=== PATIENT | male | born 1990 | race Caucasian/White ===

== ENCOUNTER 2017-03-12 20:23 | Inpatient (IN) | payer OTHER ==
[~2017-03-12] VITALS: Ht 180.3 cm; Wt 87.5 kg
[2017-03-13 00:03] LABS: UA SPECIFIC GRAVITY 1.025 (1.005-1.035); microscopic required? YES; urine erythrocyte NEGATIVE (NEGATIVE)
[2017-03-13 00:12] LABS: BASOPHIL % 0.7 % (0-2); CALCIUM 9.3 mg/dL (8.5-10.1); CHLORIDE SERUM 100 mmol/L (98-107); CREATININE SERUM 1.3 mg/dL (0.7-1.3); GFR1 > 60 mL/min; GLUCOSE SERUM 103 mg/dL (74-106); PLATELET COUNT 360 x10^3mcL (130-400); POTASSIUM SERUM 3.5 mmol/L (3.5-5.1); RED CELL DISTRIBUTION WIDTH 11.9 % (11.5-14.5); SODIUM SERUM 137 mmol/L (136-145)
[2017-03-13 00:20] LABS: ALBUMIN 3.5 g/dL (3.4-5.0); ALKALINE PHOSPHATASE 123 U/L (46-116); ALT/SGPT 55 U/L (16-63); AST/SGOT 44 U/L (15-37); BILIRUBIN TOTAL 0.6 mg/dL (0.20-1.00); TOTAL PROTEIN, SERUM 9.7 g/dL (6.4-8.2)
[2017-03-13 03:34] LABS: CHOLESTEROL/HDL RATIO 3.6; PHOSPHOROUS 3.2 mg/dL (2.5-4.9)
[2017-03-13 03:42] LABS: FREE T4 1.13 ng/dL (0.76-1.46); FREE THYROXINE INDEX 2.9 ug/dL (1.4-4.5); T4(THYROXINE) 8.2 ug/dL (4.7-13.3)
[2017-03-13 03:50] LABS: T3 TOTAL 0.99 ng/mL
[2017-03-13 04:07] VITALS: BP 128/79
[2017-03-13 04:14] VITALS: BP 110/65
[2017-03-13 04:29] LABS: RED CELL DISTRIBUTION WIDTH 11.9 % (11.5-14.5)
[2017-03-13 04:47] LABS: CALCIUM 7.3 mg/dL (8.5-10.1); CARBON DIOXIDE 24.6 mmol/L (21-32); CHLORIDE SERUM 108 mmol/L (98-107); CREATININE SERUM 1.1 mg/dL (0.7-1.3); GFR1 > 60 mL/min; GLUCOSE SERUM 96 mg/dL (74-106); MAGNESIUM 1.6 mg/dL (1.8-2.4); PHOSPHOROUS 3.4 mg/dL (2.5-4.9); POTASSIUM SERUM 3.8 mmol/L (3.5-5.1); SODIUM SERUM 143 mmol/L (136-145)
[2017-03-13 04:48] LABS: BASOPHIL % 0.4 % (0-2); PLATELET COUNT 270 x10^3mcL (130-400)
[2017-03-13 10:26] LABS: AMPHETAMINE QUAL UR NONE DETECTED (NEG <=1000)
[2017-03-13 10:52] VITALS: BP 118/73
[2017-03-13 19:10] VITALS: BP 131/72
[2017-03-13 22:24] VITALS: BP 130/77
[2017-03-14 05:53] VITALS: BP 113/64
[2017-03-14 06:18] LABS: BASOPHIL % 0.5 % (0-2); PLATELET COUNT 324 x10^3mcL (130-400); RED CELL DISTRIBUTION WIDTH 12.2 % (11.5-14.5)
[2017-03-14 07:16] LABS: ALBUMIN 2.6 g/dL (3.4-5.0); CALCIUM 8.5 mg/dL (8.5-10.1); CARBON DIOXIDE 29.1 mmol/L (21-32); CHLORIDE SERUM 105 mmol/L (98-107); GFR1 > 60 mL/min; GLUCOSE SERUM 92 mg/dL (74-106); MAGNESIUM 1.9 mg/dL (1.8-2.4); POTASSIUM SERUM 4.1 mmol/L (3.5-5.1); SODIUM SERUM 140 mmol/L (136-145)
[2017-03-14 13:08] VITALS: BP 114/70
[2017-03-14 17:36] VITALS: BP 118/64
[2017-03-14 21:41] VITALS: BP 110/64
[2017-03-15 05:30] VITALS: BP 127/83
[2017-03-15 06:26] LABS: BASOPHIL % 0.6 % (0-2); PLATELET COUNT 363 x10^3mcL (130-400); RED CELL DISTRIBUTION WIDTH 11.9 % (11.5-14.5)
[2017-03-15 06:51] LABS: ALBUMIN 2.7 g/dL (3.4-5.0); ALKALINE PHOSPHATASE 91 U/L (46-116); ALT/SGPT 28 U/L (16-63); AST/SGOT 13 U/L (15-37); BILIRUBIN TOTAL 0.4 mg/dL (0.20-1.00); CARBON DIOXIDE 32.1 mmol/L (21-32); CHLORIDE SERUM 104 mmol/L (98-107); GFR1 > 60 mL/min; GLUCOSE SERUM 91 mg/dL (74-106); POTASSIUM SERUM 4.3 mmol/L (3.5-5.1); SODIUM SERUM 141 mmol/L (136-145); TOTAL PROTEIN, SERUM 7.9 g/dL (6.4-8.2)
[2017-03-15 09:17] VITALS: BP 134/84
[2017-03-15 13:01] VITALS: BP 129/85
[2017-03-15 17:13] VITALS: BP 95/58
[2017-03-15 17:26] VITALS: BP 115/60
[2017-03-15 21:15] VITALS: BP 112/63
[2017-03-16 06:06] VITALS: BP 133/86
[2017-03-16 06:24] LABS: CALCIUM 8.7 mg/dL (8.5-10.1); CARBON DIOXIDE 33.2 mmol/L (21-32); CHLORIDE SERUM 103 mmol/L (98-107); CREATININE SERUM 0.9 mg/dL (0.7-1.3); GFR1 > 60 mL/min; GLUCOSE SERUM 95 mg/dL (74-106); MAGNESIUM 2.1 mg/dL (1.8-2.4); PHOSPHOROUS 4.3 mg/dL (2.5-4.9); SODIUM SERUM 140 mmol/L (136-145)
[2017-03-16 07:13] LABS: BASOPHIL % 0.5 % (0-2); PLATELET COUNT 397 x10^3mcL (130-400); RED CELL DISTRIBUTION WIDTH 11.9 % (11.5-14.5)
[2017-03-16 09:20] VITALS: BP 106/65
[2017-03-16 17:44] VITALS: BP 132/69
[2017-03-16 21:00] VITALS: BP 110/65
[2017-03-17 05:27] VITALS: BP 116/80
[2017-03-17 07:27] LABS: BASOPHIL % 0.7 % (0-2); RED CELL DISTRIBUTION WIDTH 11.9 % (11.5-14.5)
[2017-03-17 07:28] LABS: PLATELET COUNT 420 x10^3mcL (130-400)
[2017-03-17 10:18] VITALS: BP 107/73
[2017-03-17 17:24] VITALS: BP 124/78
[2017-03-17 21:12] VITALS: BP 102/61
[2017-03-18 05:49] VITALS: BP 108/64
[2017-03-18 06:33] LABS: BASOPHIL % 0.5 % (0-2)
[2017-03-18 06:43] LABS: CARBON DIOXIDE 30.4 mmol/L (21-32); CHLORIDE SERUM 103 mmol/L (98-107); CREATININE SERUM 1.1 mg/dL (0.7-1.3); GFR1 > 60 mL/min; GLUCOSE SERUM 95 mg/dL (74-106); POTASSIUM SERUM 4.1 mmol/L (3.5-5.1); SODIUM SERUM 140 mmol/L (136-145)
[2017-03-18 06:45] LABS: PLATELET COUNT 408 x10^3mcL (130-400)
[2017-03-18 09:30] VITALS: BP 126/86
[2017-03-18 13:00] VITALS: BP 121/80
[2017-03-18 21:47] VITALS: BP 133/81
[2017-03-19 06:00] VITALS: BP 117/70
[2017-03-19 06:45] LABS: BASOPHIL % 0.5 % (0-2)
[2017-03-19 06:59] LABS: PLATELET COUNT 453 x10^3mcL (130-400)
[2017-03-19 07:38] LABS: CALCIUM 9.1 mg/dL (8.5-10.1); CARBON DIOXIDE 29.6 mmol/L (21-32); CHLORIDE SERUM 103 mmol/L (98-107); GFR1 > 60 mL/min; GLUCOSE SERUM 94 mg/dL (74-106); POTASSIUM SERUM 3.8 mmol/L (3.5-5.1); SODIUM SERUM 139 mmol/L (136-145)
[2017-03-19 09:27] VITALS: BP 118/72
[2017-03-19 12:31] VITALS: BP 117/76
[2017-03-19] MEDS ORDERED: TOR10 PO (14:23)
[2017-03-19] MEDS ORDERED: KEFLEX500 M1 PO (14:28)
[2017-03-19] MEDS ORDERED: LAC PO (14:28)
[2017-03-19 14:35] VITALS: BP 117/76
== END 2017-03-19 17:00 | disposition home or self-care (01) | DRG 570 ==
LOC: ED 20:23 → MU 03-13 02:05 → DU 03-13 02:05 → MU 03-13 05:33
PROVIDERS: Emergency Medicine; Family Medicine; Surgery; ADMIT Family Medicine
PROC: 0D9Q0ZZ Drainage of Anus, Open Approach (ICD-10-PCS; 2017-03-15)
PROC: 0HQ9XZZ Repair Perineum Skin, External Approach (ICD-10-PCS; 2017-03-18)
PROC: 0JBB0ZZ Excision of Perineum Subcutaneous Tissue and Fascia, Open Approach (ICD-10-PCS; principal; 2017-03-18 07:30)
DX: L02.215 Cutaneous abscess of perineum (principal); N17.0 Acute kidney failure with tubular necrosis; E43 Unspecified severe protein-calorie malnutrition; L03.317 Cellulitis of buttock; E83.42 Hypomagnesemia; E83.51 Hypocalcemia; E87.8 Other disorders of electrolyte and fluid balance, not elsewhere classified; E78.5 Hyperlipidemia, unspecified; D64.9 Anemia, unspecified; Z68.26 Body mass index [BMI] 26.0-26.9, adult
CPT/HCPCS: 80307; 83880; 84439; 94150; G0480; J0690; J1885; J1956; J2175; J2250; J2270; J2405; J2543; J2704; J3010; J3490; J7030; J7120; Q0092